=== PATIENT | female | born 2005 | race Caucasian/White ===

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

== ENCOUNTER 2023-08-26 11:07 | Emergency (ER) | payer OTHER, SELFPAY ==
[2023-08-26 11:33] VITALS: BP 147/77; PULSE 64; RESP 16; TEMP 37.2; O2SAT 99; BMI 27.3
--- NOTE | 2023-08-26 11:38 | DI.RAD.S_ITS ---
PROCEDURE: XR WRIST LT MIN 3V INDICATIONS: unable to move, work injury TECHNIQUE: 4 views of the wrist were acquired. COMPARISON: [facility], CR, XR WRIST LT MIN 3V, 08/07/2018, 18:43. FINDINGS: Bones: No fractures or dislocations. No suspicious bony lesions. Soft tissues: No suspicious soft tissue calcifications. IMPRESSION: No acute bony abnormality. Dictated by: Austin Garcia M.D. on 08/26/2023 at 10:50 Approved by: Austin Garcia M.D. on 08/26/2023 at 10:53
--- NOTE | 2023-08-26 12:26 | ED.UPPEXIN ---
HPI - Extremity Injury (Upper) <ANANYA Mobley - Last Filed: 08/26/23 12:46> General Chief Complaint: Extremity Injury, Upper Stated Complaint: chest pains lt arm pain Time Seen by Provider: 08/26/23 11:56 Source: patient Mode of arrival: Ambulatory History of Present Illness HPI narrative: 18-year-old female, transitioning to male, presents to the emergency department with left wrist pain after lifting a patient yesterday. Patient states during the left he felt a pop around his thumb and had mild discomfort. Home treatment included mild elevation only. This morning, patient had a hard time opening a bottle of medicine for the patient, let alone trying to live. No previous injury to the wrist. Related Data Home Medications Medication Instructions Recorded Confirmed epinephrine 0.3 mg/0.3 mL 1 dose IM PRN PRN Allergic Reaction 09/04/17 05/07/18 injection, auto-injector ranitidine HCl 150 mg tablet 1 tab PO BID 12/25/17 05/07/18 escitalopram oxalate 20 mg tablet 20 mg PO DAILY 05/07/18 05/07/18 (Lexapro) ondansetron 4 mg disintegrating 4 mg PO Q6-8H PRN Nausea And 05/07/18 05/07/18 tablet Vomiting Previous Rx's Medication Instructions Recorded methocarbamol 750 mg tablet 750 mg PO Q6H #60 tabs 02/11/21 Allergies Allergy/AdvReac Type Severity Reaction Status Date / Time Latex, Natural Rubber Allergy Verified 02/07/20 18:40 Review of Systems <ANANYA Mobley - Last Filed: 08/26/23 12:46> Review of Systems Narrative: Narrative: See HPI. GENERAL: Denies chills, fatigue, fever, sweats. HEENT: Denies sinus pain, ear pain, sore throat, difficulty swallowing, dizziness. RESPIRATORY: Denies dyspnea, cough, wheezing, sputum. CARDIOVASCULAR: Denies chest pain, palpitations, edema. GASTROINTESTINAL: Denies nausea, vomiting, abdominal pain, diarrhea, constipation. : Denies dysuria, frequency, incontinence, hematuria, urinary retention, flank pain. MSK: Endorses left wrist pain. SKIN: Denies rash, skin lesions, or pruritis. NEUROLOGIC: Denies weakness, dizziness, headache, numbness, confusion. PSYCHIATRIC: No concerning psychosocial issues. Patient History <ANANYA Mobley - Last Filed: 08/26/23 12:46> Medical History (Updated 08/26/23 @ 12:45 by ANANYA Mobley) Depression JANA (obstructive sleep apnea) Ruptured, tendon, Achilles Seasonal allergies Surgical History History of tonsillectomy History of tympanostomy tube placement Social History Smoking Status: Current every day smoker Smoking Status: Current every day smoker tobacco type: vaping alcohol intake frequency: holidays/special occasions only Substance Use Type: marijuana Exam <ANANYA Mobley - Last Filed: 08/26/23 12:46> Narrative Exam Narrative: Exam Narrative: GENERAL: This is a well-nourished, well-developed patient, in no acute distress. HEAD: Atraumatic. Normocephalic. ENT: Nose without bleeding, purulent drainage. Airway patent. CARDIOVASCULAR: Regular rate and rhythm without murmurs, peripheral pulses intact, cap refill <2 sec. RESPIRATORY: Breath sounds equal and clear bilaterally. No wheezes, rales, or rhonchi. No cough. No increased respiratory effort. No accessory muscle use. MSK: Moves all extremities. Normal range of motion, no clubbing or edema. Neurovascularly intact. NEURO: A&O x 3. SKIN: Warm, dry, no rashes or lesions noted. WRIST: There is no swelling, bruising or asymmetry. There is tenderness noted to distal radial head but no tenderness to palpation over the carpals, distal ulnar head or radial head, olecranon, medial or lateral epicondyle. There is no snuff-box tenderness. Sensation grossly intact. Patient is unable to pronate and supinate without pain. Range of motion is limited due to pain. Radial pulse intact. [employer] Super[employer] is strong and equivalent. Inter-digital strength is intact. The contralateral wrist exam is unremarkable. Initial Vital Signs Initial Vital Signs: Vital Signs Temperature 98.9 F 08/26/23 11:33 Pulse Rate 64 08/26/23 11:33 Respiratory Rate 16 08/26/23 11:33 Blood Pressure 147/77 H 08/26/23 11:33 Pulse Oximetry 99 08/26/23 11:33 Oxygen Delivery Method Room Air 08/26/23 11:33 Reviewed <Marianna Bridges DO - Last Filed: 08/29/23 13:18> Initial Vital Signs Initial Vital Signs: Vital Signs Temperature 98.9 F 08/26/23 11:33 Pulse Rate 64 08/26/23 11:33 Respiratory Rate 16 08/26/23 11:33 Blood Pressure 147/77 H 08/26/23 11:33 Pulse Oximetry 99 08/26/23 11:33 Oxygen Delivery Method Room Air 08/26/23 11:33 Course <ANANYA Mobley - Last Filed: 08/26/23 12:46> Orders Ordered: ED Orders 08/26/23 11:38 XR wrist LT min 3V Stat Vital Signs Vital signs: Vital Signs - 8 hr 08/26/23 11:33 Temperature 98.9 F Pulse Rate 64 Respiratory Rate 16 Blood Pressure 147/77 H Pulse Oximetry 99 Oxygen Delivery Method Room Air <Marianna Bridges DO - Last Filed: 08/29/23 13:18> Orders Ordered: ED Orders 08/26/23 11:38 XR wrist LT min 3V Stat Vital Signs Vital signs: Vital Signs - 8 hr 08/26/23 11:33 Temperature 98.9 F Pulse Rate 64 Respiratory Rate 16 Blood Pressure 147/77 H Pulse Oximetry 99 Oxygen Delivery Method Room Air MDM - Extremity Injury (Upper) <ANANYA Mobley - Last Filed: 08/26/23 12:46> Differential Diagnosis Differential diagnosis: Likely sprain and strain of wrist and fracture of wrist Imaging Data Extremity x-ray #1: My Impression: Normal wrist Radiologist's Impression: Close Wrist X-Ray (Signed) Austin Garcia - 08/26/23 Launch?Image [address] [address] XRay Report Signed Patient: Whitney Mejia MR#: [id number] : 2005 Acct:[id number] Age/Sex: 18 / F Date of Service: 08/26/23 Loc: ED Accession Number: [id number] Procedure: XR wrist LT min 3V Ordering Provider: Marianna Bridges D.O. PROCEDURE: XR WRIST LT MIN 3V INDICATIONS: unable to move, work injury TECHNIQUE: 4 views of the wrist were acquired. COMPARISON: [facility], CR, XR WRIST LT MIN 3V, 08/07/2018, 18:43. FINDINGS: Bones: No fractures or dislocations. No suspicious bony lesions. Soft tissues: No suspicious soft tissue calcifications. IMPRESSION: No acute bony abnormality. Dictated by: Austin Garcia M.D. on 08/26/2023 at 10:50 Approved by: Austin Garcia M.D. on 08/26/2023 at 10:53 MDM Narrative Medical decision making narrative: 18-year-old female with left wrist pain. Assessment was encouraging and x-ray was normal. Suspect patient has a left wrist sprain/strain. Recommended supportive care such as Rest (modified activity), along with ice, compression wrap/splint-immobilize as directed and elevation above heart. Tylenol or Ibuprofen for discomfort. Discussed plan of care and return precautions with patient, who verbalized understanding and was agreeable with course of action. Work note provided. Discharge Plan Departure Patient Disposition: Home Clinical Impression: Sprain and strain of wrist Instructions: DI for Wrist Sprain Activity Restrictions/Additional Instructions: *You have been diagnosed with a left wrist strain. It was a pleasure meeting you and I am happy to report that your x-ray was normal. My assessment was encouraging I do not suspect anything dangerous is occurring. Supportive care measures include Rest (modified activity), along with ice, compression wrap/splint-immobilize as directed and elevation above heart. Tylenol or Ibuprofen for discomfort. Please make sure when doing patient lifts, that you have assistance and are using good form. *What to do: *Please continue to take your regular medications as directed. [ ] New medication prescriptions sent to your pharmacy: [ ] [ ] New medication written as a paper prescription [x ] No new medications given *Please follow up with your primary care provider in 2-3 days, call for an appointment. Let them know you were seen in the Emergency Department and that we ask that you be seen in follow up. We will electronically transmit a record of today's note if your PCP is in our system *If you do not have a primary care provider please contact the [facility] Resource line at [phone]. They will ask some questions about your medical history and help get you set up with a doctor in the community. ? Return to ER if you should have any new, worsening or concerning symptoms, such as worsening pain, severe headache, confusion, chest pain, difficulty breathing, fever greater than 101 F, shaking chills, persistent vomiting to the point that you cannot drink fluids, or other new or worsening symptoms. Prescriptions: No Action ranitidine HCl 150 mg tablet 1 tab PO BID ondansetron 4 mg Tablet,Disintegrating 4 mg PO Q6-8H PRN (Reason: Nausea And Vomiting) escitalopram oxalate [Lexapro] 20 mg Tablet 20 mg PO DAILY methocarbamol 750 mg tablet 750 mg PO Q6H Qty: 60 0RF epinephrine 0.3 mg/0.3 mL auto-injector 1 dose IM PRN PRN (Reason: Allergic Reaction) Referrals: Ronaldo Dewey MD [Primary Care Provider] - Stand Alone Forms: Patient Portal/API, Work Release Note ED Sign-out <Marianna Bridges DO - Last Filed: 08/29/23 13:18> Cosign ED Attending Tom Attestation: I was immediately available in the department for consultation.
[2023-08-26 12:50] VITALS: BP 138/87; PULSE 75; RESP 18; O2SAT 95
== END 2023-08-26 12:53 | disposition home or self-care (01) ==
PROVIDERS: Emergency Provider Registered Nurse; PCP Family Medicine
DX: S63.502A Unspecified sprain of left wrist, initial encounter (principal); S66.912A Strain of unspecified muscle, fascia and tendon at wrist and hand level, left hand, initial encounter; X50.0XXA Overexertion from strenuous movement or load, initial encounter
CPT/HCPCS: 73110; 99282; 99283